=== PATIENT | female | born 1995 | race Caucasian/White ===

== ENCOUNTER 2016-11-02 05:15 | Emergency (ER) | payer OTHER ==
[~2016-11-02] VITALS: Ht 157.5 cm; Wt 71.7 kg
[2016-11-02 05:26] VITALS: TEMP 37; Ht 157.5 cm; Wt 71.7 kg
[2016-11-02] MEDS ORDERED: ONDANSETRON INJ 2 MG/ML 2 ML VIAL IV STA ×2 (05:33→05:42)
[2016-11-02] MEDS ORDERED: SODIUM CHLORIDE 0.9% 1000ML 1,000 ML IV STA ×2 (05:33→05:42)
[2016-11-02] MEDS ORDERED: KETOROLAC TROMETHAMINE 30 MG/ML VIAL IV STA (05:42)
[2016-11-02] MEDS ORDERED: KETOROLAC TROMETHAMINE 60 MG/2 ML VIAL IM STA (06:16)
[2016-11-02] MEDS ORDERED: ONDANSETRON 4MG OD TAB ONE (06:16)
[2016-11-02] MEDS ORDERED: KETOROLAC TROMETHAMINE 30 MG/ML VIAL ONE (06:18)
[2016-11-02] MEDS ORDERED: ONDANSETRON 4MG OD TAB PO ONE (06:30)
[2016-11-02 06:35] LABS: BASO % 0.4 %; BASO ABS # 0.03 K/uL (0-0.2); COMPLETE YES; EOS % 5.4 %; HEMATOCRIT 39.2 % (37-47); IG% 0.4 %; LYMPH % 18.1 %; LYMPH ABS # 1.55 K/uL (1.2-3.4); MEAN CELL VOLUME 91.2 fL (80-100); MEAN CORPUSCULAR HEMOGLOBIN 30.9 pg (25-34); MEAN CORPUSCULAR HGB CONC 33.9 g/dl (32-36); MEAN PLATELET VOLUME 9.3 fL (7.4-10.4); MONO % 6.3 %; NEUT % 69.4 %; PLATELET COUNT 243 K/uL (130-400); WHITE BLOOD COUNT 8.55 K/uL (4.8-10.8)
[2016-11-02 06:44] LABS: URINE APPEARANCE CLEAR (CLEAR); URINE BILIRUBIN NEG (NEG); URINE COLOR YELLOW; URINE NITRITE NEG (NEG); URINE PH 5.5 (4.5-7.5); URINE SPECIFIC GRAVITY 1.014 (1.000-1.030); UROBILINOGEN NEG (NEG)
[2016-11-02 06:52] LABS: BUN/CREATININE RATIO 10.1 (10-20); CALCIUM 8.7 mg/dl (8.5-10.1); CREATININE 0.71 mg/dl (0.60-1.20); POTASSIUM 3.7 mmol/L (3.5-5.1)
[2016-11-02 06:58] LABS: MANUAL MICROSCOPIC REQUIRED? NO; REVIEW REQ? NO
[2016-11-02 07:04] LABS: PREG INTERNAL NEGATIVE QC NEG CLEAR BACKGROUND; PREG INTERNAL POSITIVE QC POS CONTROL LINE
[2016-11-02 07:13] LABS: BENZODIAZEPINE, URINE NEG (NEG); COCAINE,URINE POS (NEG); PHENCYCLIDINE, URINE NEG (NEG)
--- NOTE | 2016-11-02 07:32 | DIAGNOSTIC IMAGING REPORT ---
PELVIC ULTRASOUND CLINICAL HISTORY: Pelvic pain. COMPARISON STUDY: None TECHNIQUE: Transabdominal sonography of the pelvis was performed. FINDINGS: The uterus measures 5.8 x 3 x 3.8 cm. The endometrium is normal in thickness. A small amount of fluid is noted within the pelvis. The right ovary measures 3.1 x 2.4 x 3.8 cm and contains color flow. Note is made of a cystic lesion within the midline that measures 7.1 x 6.3 x 7.6 cm. This is located anterior to the uterus and likely arises from the left ovary. Color flow is identified within the adjacent ovarian tissue. This cystic lesion contains a 4.2 x 3.7 x 4.1 cm complex component which contains multiple septations. Color flow is identified within this complex component. IMPRESSION: 1. 7.6 x 7.1 x 6.3 cm complex midline cystic abnormality within the pelvis, likely arising from the left ovary. This lesion contains a 4.2 x 3.7 x 4.1 cm multiloculated cystic component with septations and color flow. This lesion is indeterminate and color flow raises the possibility of a neoplasm. Although likely benign given the patient's age, malignancy cannot be excluded by sonography and gynecologic consultation is recommended. 2. Unremarkable sonographic appearance of the right ovary and uterus. Electronically signed by: Russ Whitehead M.D. 11/02/2016 7:30 AM Dictated Date/Time: 11/02/2016 7:26 AM
--- NOTE | 2016-11-02 08:12 | EMERGENCY ROOM VISIT NOTE ---
ED Visit Note First contact with patient: 07:04 Patient care was assumed from Cassi Luna PA-C, at the time of shift change. Please see Ms. Luna's dictation for full history of present illness an emergency Department course prior to this assumption of care. In short, the patient has had suprapubic abdominal pain for the past several days. On examination she does not appear toxic. Her abdomen is soft without obvious tenderness. There is certainly no rebound or guarding. We are awaiting ultrasound of the pelvis at the time of shift change. Ultrasound is as below: PELVIC ULTRASOUND CLINICAL HISTORY: Pelvic pain. COMPARISON STUDY: None TECHNIQUE: Transabdominal sonography of the pelvis was performed. FINDINGS: The uterus measures 5.8 x 3 x 3.8 cm. The endometrium is normal in thickness. A small amount of fluid is noted within the pelvis. The right ovary measures 3.1 x 2.4 x 3.8 cm and contains color flow. Note is made of a cystic lesion within the midline that measures 7.1 x 6.3 x 7.6 cm. This is located anterior to the uterus and likely arises from the left ovary. Color flow is identified within the adjacent ovarian tissue. This cystic lesion contains a 4.2 x 3.7 x 4.1 cm complex component which contains multiple septations. Color flow is identified within this complex component. IMPRESSION: 1. 7.6 x 7.1 x 6.3 cm complex midline cystic abnormality within the pelvis, likely arising from the left ovary. This lesion contains a 4.2 x 3.7 x 4.1 cm multiloculated cystic component with septations and color flow. This lesion is indeterminate and color flow raises the possibility of a neoplasm. Although likely benign given the patient's age, malignancy cannot be excluded by sonography and gynecologic consultation is recommended. 2. Unremarkable sonographic appearance of the right ovary and uterus. The ultrasound appears to show a left adnexal mass as best described above. I discussed this finding with the patient at length. Evidently she does have a strong family history of ovarian cancer. The patient recently moved to the [facility] and does not have a primary care physician or [facility] [employer] established. I did discuss this US finding with the on-call [facility] [employer], Dr. Vivas, who recommended the patient follow-up on a short interval as an outpatient to both establish care and to establish a surgical date. 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 Case management was able to contact Dr Vivas's [facility] [employer] office after 8 AM when the office opened to schedule an appointment on the patients behalf. Evidently Dr. Vivas has already spoken with several of her colleagues regarding this case. The office will have Dr. Quigley see the patient tomorrow for her follow up. The patient was notified of this plan. She patient will be asked use [id number] analgesics for her pain control. She was otherwise invited back to the emergency department with any new, worsening, or concerning symptoms. Current/Historical Medications No Active Prescriptions or Reported Meds Allergies Uncoded Allergies: BUBBLE BATH (Allergy, Unknown, hives, 11/02/16) Vital Signs Date Time Temp Pulse Resp B/P Pulse Ox O2 Delivery O2 Flow Rate FiO2 11/02/16 09:25 105 18 118/72 95 11/02/16 07:25 120 18 94/47 94 Room Air 11/02/16 05:26 37.0 116 20 117/78 100 Room Air Laboratory Results 11/02/16 06:15 Red Blood Count 4.30, Mean Corpuscular Volume 91.2, Mean Corpuscular Hemoglobin 30.9, Mean Corpuscular Hemoglobin Concent 33.9, Mean Platelet Volume 9.3, Neutrophils (%) (Auto) 69.4, Lymphocytes (%) (Auto) 18.1, Monocytes (%) (Auto) 6.3, Eosinophils (%) (Auto) 5.4, Basophils (%) (Auto) 0.4, Neutrophils # (Auto) 5.94, Lymphocytes # (Auto) 1.55, Monocytes # (Auto) 0.54, Eosinophils # (Auto) 0.46, Basophils # (Auto) 0.03 11/02/16 06:15 Test 11/02/16 06:15 White Blood Count 8.55 K/uL (4.8-10.8) Red Blood Count 4.30 M/uL (4.2-5.4) Hemoglobin 13.3 g/dL (12.0-16.0) Hematocrit 39.2 % (37-47) Mean Corpuscular Volume 91.2 fL (80-100) Mean Corpuscular Hemoglobin 30.9 pg (25-34) Mean Corpuscular Hemoglobin Concent 33.9 g/dl (32-36) Platelet Count 243 K/uL (130-400) Mean Platelet Volume 9.3 fL (7.4-10.4) Neutrophils (%) (Auto) 69.4 % Lymphocytes (%) (Auto) 18.1 % Monocytes (%) (Auto) 6.3 % Eosinophils (%) (Auto) 5.4 % Basophils (%) (Auto) 0.4 % Neutrophils # (Auto) 5.94 K/uL (1.4-6.5) Lymphocytes # (Auto) 1.55 K/uL (1.2-3.4) Monocytes # (Auto) 0.54 K/uL (0.11-0.59) Eosinophils # (Auto) 0.46 K/uL (0-0.5) Basophils # (Auto) 0.03 K/uL (0-0.2) RDW Standard Deviation 47.7 fL (36.4-46.3) RDW Coefficient of Variation 14.3 % (11.5-14.5) Immature Granulocyte % (Auto) 0.4 % Immature Granulocyte # (Auto) 0.03 K/uL (0.00-0.02) Urine Color YELLOW Urine Appearance CLEAR (CLEAR) Urine pH 5.5 (4.5-7.5) Urine Specific [place] 1.014 (1.000-1.030) Urine Protein NEG (NEG) Urine Glucose (UA) NEG (NEG) Urine Ketones NEG (NEG) Urine Occult Blood NEG (NEG) Urine Nitrite NEG (NEG) Urine Bilirubin NEG (NEG) Urine Urobilinogen NEG (NEG) Urine Leukocyte Esterase TRACE (NEG) Urine WBC (Auto) 1-5 /hpf (0-5) Urine RBC (Auto) 0-4 /hpf (0-4) Urine Hyaline Casts (Auto) 0 /lpf (0-5) Urine Epithelial Cells (Auto) 10-20 /lpf (0-5) Urine Bacteria (Auto) NEG (NEG) Anion Gap 8.0 mmol/L (3-11) Est Creatinine Clear Calc Drug Dose 117.2 ml/min Estimated GFR () 142.1 Estimated GFR (Non- 122.6 BUN/Creatinine Ratio 10.1 (10-20) Calcium Level 8.7 mg/dl (8.5-10.1) Human Chorionic Gonadotropin, Qual NEG (NEG) Urine Opiates Screen POS (NEG) Urine Methadone, Qualitative NEG (NEG) Urine Barbiturates NEG (NEG) Urine Phencyclidine (PCP) Level NEG (NEG) Ur Amphetamine/Methamphetamine NEG (NEG) MDMA (Ecstasy) Screen NEG (NEG) Urine Benzodiazepines Screen NEG (NEG) Urine Cocaine Metabolite POS (NEG) Urine Marijuana (THC) NEG (NEG) Medications Administered Medications (Trade) Dose Ordered Sig/Jennifer Route Start Time Stop Time Status Last Admin Dose Admin Ketorolac Tromethamine (Toradol Inj) 60 mg NOW STAT IM 11/02/16 06:16 11/02/16 06:18 DC 11/02/16 06:16 60 MG Ondansetron HCl (Zofran Odt) 4 mg STK-MED ONCE .ROUTE 11/02/16 06:16 11/02/16 06:18 DC 11/02/16 06:23 4 MG Departure Information Impression Primary Impression: Ovarian mass, left Additional Impressions: Suprapubic abdominal pain Vomiting Dispostion Home / Self-Care Condition GOOD Prescriptions No Active Prescriptions or Reported Meds Referrals Mariposa Fierro M.D. Forms HOME CARE DOCUMENTATION FORM, IMPORTANT VISIT INFORMATION Patient Instructions Abdominal Pain, My [facility] Additional Instructions Your ultrasound today is concerning for a left ovarian mass. This needs follow- up with [facility] [employer]. Please follow-up with [facility] [facility] as scheduled by case management. Ibuprofen(Motrin, Advil) may be used for fever or pain. Use 600mg every six hours as needed. Take with food. Avoid using more than 2400mg in a 24 hour period. Do not use 2400mg per day for more than three consecutive days without physician direction. Prolonged inappropriate use can lead to stomach upset or ulcers. (AND/OR) Acetaminophen(Tylenol) may be used for fever or pain. Use 1000mg every six hours as needed. Avoid using more than 3000mg in a 24 hour period. Rest and drink plenty of fluids as tolerated. Continue current medications. Avoid strenuous activities and anything that worsens your pain. Resume normal activities once your symptoms resolve. Return to the ER immediately for worsening or persistent abdominal pain, vomiting, fevers, chest pains, difficulty breathing, worsening of your condition , or as needed. Follow up with your primary physician in 2-3 days for a recheck of your current condition. Problem Qualifiers
[2016-11-02 09:25] VITALS: BP 118/72; PULSE 105; O2SAT 95
--- NOTE | 2016-11-02 21:33 | EMERGENCY ROOM VISIT NOTE ---
History First contact with patient: 05:31 Chief Complaint: ABDOMINAL PAIN Stated Complaint: LWR STOMACH PAIN,VOMITING,FEVER,HEADACHE Nursing Triage Summary: Patient reports sharp suprapubic pain for a few days, states that the pain constant. Also reports fever, n/v. Denies any urinary s/s at this time. History of Present Illness The patient is a 20 year old female who presents to the Emergency Room with complaints of nausea, vomiting and suprapubic pain for the past 2 days. Patient has a history of ovarian cyst and symptoms feel similar. Patient has had an appendectomy. Normal bowel movements. No urinary issues. Patient denies chest pain, dyspnea, fever, chills, cough, congestion. She describes the pain as aching, ranging in severity 6 out of 10. Nothing makes it better or worse. Patient is in a monogamous relationship and does not feel at risk for STIs. Review of Systems See HPI for pertinent positives & negatives. A total of 10 systems reviewed and were otherwise negative. Past Medical/Surgical History ovarian cyst, appendectomy Social History Smoking Status: Current Every Day Smoker Drug Use: heroin Marital Status: in relationship Current/Historical Medications No Active Prescriptions or Reported Meds Allergies Uncoded Allergies: BUBBLE BATH (Allergy, Unknown, hives, 11/02/16) Physical Exam Vital Signs Date Time Temp Pulse Resp B/P Pulse Ox O2 Delivery O2 Flow Rate FiO2 11/02/16 09:25 105 18 118/72 95 11/02/16 07:25 120 18 94/47 94 Room Air 11/02/16 05:26 37.0 116 20 117/78 100 Room Air Physical Exam VITALS: Vitals are noted on the nurse's note and reviewed by myself. Vital signs stable. GENERAL: White female, in no acute distress, nondiaphoretic, well-developed well -nourished. SKIN: Multiple track jenkins bilateral arms The rest of the skin was without rashes, erythema, edema, or bruising. There is no tenting of the skin. Capillary reflex less than 2 seconds. HEAD: Normocephalic atraumatic. EARS: External auditory canals clear, tympanic membranes pearly [place]field without erythema or effusion bilaterally. EYES: Pupils equal round and reactive to light and accommodation. Conjunctivae without injection, sclerae without icterus. Extraocular movements intact. NOSE: Patent, turbinates without inflammation or discharge. MOUTH: Mucous membranes moist. Pharynx without erythema or exudate. Uvula midline. Airway patent. Tongue does not deviate. NECK: Supple without nuchal rigidity. No lymphadenopathy. No thyromegaly. Cervical spine is nontender. No JVD. HEART: Regular rate and rhythm without murmurs gallops or rubs. LUNGS: Clear to auscultation bilaterally without wheezes, rales or rhonchi. No dullness to percussion. No retractions or accessory muscle use. ABDOMEN: Positive bowel sounds x 4. Normal tympanic percussion. Soft, tender to palpation suprapubic area, no CVA tenderness, without masses or organomegaly. Loco sign negative. No guarding or rebound tenderness. MUSCULOSKELETAL: No muscle atrophy, erythema, or edema noted. NEURO: Patient was alert and oriented to person place and time. Normal sensation to light and sharp touch. No focal neurological deficits. Medical Decision & Procedures Laboratory Results 11/02/16 06:15 Red Blood Count 4.30, Mean Corpuscular Volume 91.2, Mean Corpuscular Hemoglobin 30.9, Mean Corpuscular Hemoglobin Concent 33.9, Mean Platelet Volume 9.3, Neutrophils (%) (Auto) 69.4, Lymphocytes (%) (Auto) 18.1, Monocytes (%) (Auto) 6.3, Eosinophils (%) (Auto) 5.4, Basophils (%) (Auto) 0.4, Neutrophils # (Auto) 5.94, Lymphocytes # (Auto) 1.55, Monocytes # (Auto) 0.54, Eosinophils # (Auto) 0.46, Basophils # (Auto) 0.03 11/02/16 06:15 Test 11/02/16 06:15 White Blood Count 8.55 K/uL (4.8-10.8) Red Blood Count 4.30 M/uL (4.2-5.4) Hemoglobin 13.3 g/dL (12.0-16.0) Hematocrit 39.2 % (37-47) Mean Corpuscular Volume 91.2 fL (80-100) Mean Corpuscular Hemoglobin 30.9 pg (25-34) Mean Corpuscular Hemoglobin Concent 33.9 g/dl (32-36) Platelet Count 243 K/uL (130-400) Mean Platelet Volume 9.3 fL (7.4-10.4) Neutrophils (%) (Auto) 69.4 % Lymphocytes (%) (Auto) 18.1 % Monocytes (%) (Auto) 6.3 % Eosinophils (%) (Auto) 5.4 % Basophils (%) (Auto) 0.4 % Neutrophils # (Auto) 5.94 K/uL (1.4-6.5) Lymphocytes # (Auto) 1.55 K/uL (1.2-3.4) Monocytes # (Auto) 0.54 K/uL (0.11-0.59) Eosinophils # (Auto) 0.46 K/uL (0-0.5) Basophils # (Auto) 0.03 K/uL (0-0.2) RDW Standard Deviation 47.7 fL (36.4-46.3) RDW Coefficient of Variation 14.3 % (11.5-14.5) Immature Granulocyte % (Auto) 0.4 % Immature Granulocyte # (Auto) 0.03 K/uL (0.00-0.02) Urine Color YELLOW Urine Appearance CLEAR (CLEAR) Urine pH 5.5 (4.5-7.5) Urine Specific [place] 1.014 (1.000-1.030) Urine Protein NEG (NEG) Urine Glucose (UA) NEG (NEG) Urine Ketones NEG (NEG) Urine Occult Blood NEG (NEG) Urine Nitrite NEG (NEG) Urine Bilirubin NEG (NEG) Urine Urobilinogen NEG (NEG) Urine Leukocyte Esterase TRACE (NEG) Urine WBC (Auto) 1-5 /hpf (0-5) Urine RBC (Auto) 0-4 /hpf (0-4) Urine Hyaline Casts (Auto) 0 /lpf (0-5) Urine Epithelial Cells (Auto) 10-20 /lpf (0-5) Urine Bacteria (Auto) NEG (NEG) Anion Gap 8.0 mmol/L (3-11) Est Creatinine Clear Calc Drug Dose 117.2 ml/min Estimated GFR () 142.1 Estimated GFR (Non- 122.6 BUN/Creatinine Ratio 10.1 (10-20) Calcium Level 8.7 mg/dl (8.5-10.1) Human Chorionic Gonadotropin, Qual NEG (NEG) Urine Opiates Screen POS (NEG) Urine Methadone, Qualitative NEG (NEG) Urine Barbiturates NEG (NEG) Urine Phencyclidine (PCP) Level NEG (NEG) Ur Amphetamine/Methamphetamine NEG (NEG) MDMA (Ecstasy) Screen NEG (NEG) Urine Benzodiazepines Screen NEG (NEG) Urine Cocaine Metabolite POS (NEG) Urine Marijuana (THC) NEG (NEG) Medications Administered Medications (Trade) Dose Ordered Sig/Jennifer Route Start Time Stop Time Status Last Admin Dose Admin Ketorolac Tromethamine (Toradol Inj) 60 mg NOW STAT IM 11/02/16 06:16 11/02/16 06:18 DC 11/02/16 06:16 60 MG Ondansetron HCl (Zofran Odt) 4 mg STK-MED ONCE .ROUTE 11/02/16 06:16 11/02/16 06:18 DC 11/02/16 06:23 4 MG ED Course Prior records/ancillary studies reviewed. Triage Nursing notes reviewed. Additional history obtained from friend The patient's history was concerning for abdominal pain. Differential diagnosis: Etiologies such as ovarian cyst, torsion, diverticulitis, PUD, biliary pathology , UTI, pancreatitis, obstruction, mesenteric ischemia, aortic pathology, infections, inflammatory bowel disease, renal colic, as well as others were entertained. Physical examination findings: As above. ER treatment provided: Toradol, IV fluids On reassessment the patient felt better. Diagnostics interpreted by me: The labs revealed no leukocytosis. Stable H&H Imaging studies: pending Patient multiple track jenkins. IV access was difficult. Blood was obtained by myself utilizing the ultrasound machine but unfortunately the IV line blew when fluids were pushed. 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 This does not seem realistic to me. She has multiple fresh track jenkins. Case reviewed with my attending. Case is signed out to Arnold Tran PA-C pending ultrasound and reevaluation in stable condition. Medical Decision As above Impression Primary Impression: Suprapubic abdominal pain Additional Impression: Vomiting Departure Information Prescriptions No Active Prescriptions or Reported Meds Referrals No Doctor, Assigned (PCP) Patient Instructions [facility] Problem Qualifiers
[2016-11-05 08:51] LABS: COCAINE, URINE 375 NG/ML (CUTOFF=100); COD UR 244 NG/ML (CUTOFF=50); HYDROCOD UR 5170 NG/ML (CUTOFF=50); HYDROMOR UR 721 NG/ML (CUTOFF=50); MORPHINE UR 18000 NG/ML (CUTOFF=50); NORHYDROCODONE CONF UR 6960 NG/ML (CUTOFF=50); OXYMORPH UR 363 NG/ML (CUTOFF=50)
== END 2016-11-02 09:25 | disposition home or self-care (01) ==
LOC: EDBD → C.EDB 05:17
DX: R10.33 Periumbilical pain (principal); R11.10 Vomiting, unspecified; Z90.89 Acquired absence of other organs; F17.210 Nicotine dependence, cigarettes, uncomplicated; Z91.048 Other nonmedicinal substance allergy status

== ENCOUNTER → 2016-11-03 | Outpatient (CLI) | payer SELFPAY ==
[2016-11-08 00:15] LABS: CHLAMYDIA TRACH RNA*** NOT DETECTED (NOT DETECTED); GC (NEIS GONORRHOEAE)RNA** NOT DETECTED (NOT DETECTED)
== END | disposition home or self-care (01) ==
LOC: EDBD → C.LABSPEC 17:40
PROVIDERS: ATTEND Obstetrics & Gynecology
DX: N89.8 Other specified noninflammatory disorders of vagina (principal)

== ENCOUNTER → 2017-02-22 | Outpatient (CLI) | payer OTHER ==
[2017-02-22 14:41] LABS: BASO % 0.3 %; BASO ABS # 0.02 K/uL (0-0.2); COMPLETE YES; EOS % 3.3 %; HEMATOCRIT 42.1 % (37-47); IG% 0.1 %; LYMPH % 26.7 %; LYMPH ABS # 1.95 K/uL (1.2-3.4); MEAN CELL VOLUME 94.4 fL (80-100); MEAN CORPUSCULAR HEMOGLOBIN 31.4 pg (25-34); MEAN CORPUSCULAR HGB CONC 33.3 g/dl (32-36); MEAN PLATELET VOLUME 9.5 fL (7.4-10.4); MONO % 6.3 %; NEUT % 63.3 %; PLATELET COUNT 317 K/uL (130-400); RED BLOOD COUNT 4.46 M/uL (4.2-5.4); WHITE BLOOD COUNT 7.31 K/uL (4.8-10.8)
== END | disposition home or self-care (01) ==
LOC: C.LAB1850 13:56
PROVIDERS: ATTEND Obstetrics & Gynecology
DX: N89.8 Other specified noninflammatory disorders of vagina (principal); N94.9 Unspecified condition associated with female genital organs and menstrual cycle